=== PATIENT | male | born 1955 | race Caucasian/White ===

== ENCOUNTER 2023-01-18 11:04 | Observation (INO) ==
--- NOTE | 2022-12-14 15:16 | PAT Medication Instructions ---
Medication Instructions Date of Service December 14, 2022 Home Medications aspirin 81 mg capsule 81 mg PO HS atenolol 50 mg-chlorthalidone 25 mg tablet 1 tab PO QAM cyclobenzaprine 10 mg tablet 10 mg PO DAILY diphenhydramine HCl 25 mg capsule (Benadryl) 25 mg PO HS glucosamine-chondroitin 250 mg-200 mg tablet (Osteo Bi-Flex) 1 tab PO BID potassium chloride 10 mEq capsule,extended release 10 meq PO BID rosuvastatin 20 mg tablet 20 mg PO HS sulindac 200 mg tablet 200 mg PO BID Medication Instructions: ASK your surgeon for instructions sulindac 200 mg tablet 200 mg PO BID ASK your prescriber and surgeon aspirin 81 mg capsule 81 mg PO HS STOP taking 2 weeks before surgery glucosamine-chondroitin 250 mg-200 mg tablet (Osteo Bi-Flex) 1 tab PO BID DO NOT take the morning of surgery cyclobenzaprine 10 mg tablet 10 mg PO DAILY potassium chloride 10 mEq capsule,extended release 10 meq PO BID Take morning of surgery With a small sip of water, OTHERWISE NOTHING TO EAT OR DRINK AFTER MIDNIGHT: atenolol 50 mg-chlorthalidone 25 mg tablet 1 tab PO QAM Take evening before surgery rosuvastatin 20 mg tablet 20 mg PO HS diphenhydramine HCl 25 mg capsule (Benadryl) 25 mg PO HS potassium chloride 10 mEq capsule,extended release 10 meq PO BID Other Notes If you have any questions please call us at [phone] or [phone] or [phone] or [phone]
--- NOTE | 2022-12-21 09:51 | Anesthesiology Consultation ---
Date of Service December 21, 2022 Assessment & Plan (1) Encounter for pre-operative examination: Chart Review Chart Review: Acceptable Risk for Surgery and Patient seen in Pre Admission Testing Moderate aortic stenosis- did discuss SAB vs GA- will leave to anesthesiologist discretion (no fluid bolus ordered) - Pt is NOT an OPJ candidate (currently scheduled as 23 hour obs) Per PAT appt on 12/21/22, no recent illness/disease exposures, illness related symptoms, or recent illness/disease positive tests. Will leave to surgeon's discretion if preop Covid testing needed Patient seen by cardio 10/14/22= seen for consultation for aortic stenosis and aortic valve insufficiency. Patient doing well and remains quite active. Recent echo shows LV cavity normal in size and has preserved LVEF thus no absolute indication for intervention on AV at this time. Repeat ECHO within 1 year along with a routine clinical follow up Teaching & Discussion Pre-Anesthesia Teaching/Discussion Notes: Instructed NPO after midnight before surgery,except medications with 15 cc of water. Medication instructions provided according to the PAT guidelines. History Surgery Operation Date: 01/18/23 07:00 Proposed Procedures p Right Total Knee Arthroplasty - Kyler Hale MD Height/Weight Height: 5 ft 6 in Weight: 77.2 kg Allergies Allergy/AdvReac Type Severity Reaction Status Date / Time No Known Allergies Allergy Verified 12/14/22 12:11 Medications Home Medications Medication Instructions Recorded Confirmed Last Taken aspirin 81 mg capsule 81 mg PO HS 12/14/22 12/14/22 Unknown atenolol 50 mg-chlorthalidone 25 1 tab PO QAM 12/14/22 12/14/22 Unknown mg tablet cyclobenzaprine 10 mg tablet 10 mg PO DAILY 12/14/22 12/14/22 Unknown diphenhydramine HCl 25 mg capsule 25 mg PO HS 12/14/22 12/14/22 Unknown (Benadryl) glucosamine-chondroitin 250 mg-200 1 tab PO BID 12/14/22 12/14/22 Unknown mg tablet (Osteo Bi-Flex) potassium chloride 10 mEq 10 meq PO BID 12/14/22 12/14/22 Unknown capsule,extended release rosuvastatin 20 mg tablet 20 mg PO HS 12/14/22 12/14/22 Unknown sulindac 200 mg tablet 200 mg PO BID 12/14/22 12/14/22 Unknown Past Medical History Medical History (Updated 12/21/22 @ 10:01 by Daily Alston PA-C) Aortic stenosis Moderate (VINCE 1.1-1.2 cm; AV max velocity 3.252 m/s; AV mean PG 20.6 mmHg) per 06/24/22 ECHO with moderate to severe AR Follows with [facility] Arthritis Hyperlipidemia Hypertension Exercise / Class Metabolic Activity II 4-5 Yardwork/Stairs/Walk up hill (one flight of stairs - no chest pain or SOB ) Past Family History Family History Other No family history of adverse response to anesthesia Past Surgical History Surgical History H/O metal removed from eye History of colonoscopy History of tonsillectomy History of tooth extraction Past Anesthesia History No Hx of Anesthesia Complications and No Family Hx of Anesthesia Complications History of PONV No Hx of PONV and No Hx of Motion Sickness Social History Smoking Status: Former smoker Do You Dip or Chew Tobacco: No Smoking End Date: 30+ years ago Hx Alcohol Use: Yes Alcohol type: beer alcohol intake frequency: 3 or more drinks per day Alcohol Intake Frequency Comment: 2-6 beers per day substance use type: does not use Review of Systems Patient denies chest pain, shortness of breath, dyspnea on exertion, reflux, c ough, wheezing, palpitations. No hx of seizures, stroke, NH, apnea/snoring. No hx of blood clots or blood transfusions Physical Exam Vital Signs VITALS BP 116/51 P 60 TEMP 97.7 SP02 96% RESP 16 Constitutional no acute distress ENMT Mouth: no TMJ clicking Thyromental Distance: > or= 3.5 Finger Breadths (3.5) Mallampati Class: II Full upper denture Permanent front bottom bridge Neck neck extension not limited Respiratory normal respiratory effort; no respiratory distress Auscultation: lungs clear to auscultation bilaterally; no wheezes Cardiovascular Rate/Rhythm: regular rate and regular rhythm Heart Sounds: + murmur (III/ murmur) Vessels: no carotid bruit Musculoskeletal Spine: no pain with cervical ROM Extremities: extremities normal to inspection Psychiatric Orientation: alert Lab Results Anesthesia Preop Results Results Anesthesia Widget: WBC 6.83 K/ul (4.8-10.8) 12/21/22 Hgb 14.5 g/dl (14.0-18.0) 12/21/22 Hct 41.2 % (42.0-52.0) L 12/21/22 Plt 170 K/uL (130-400) 12/21/22 Na 138 mmol/L (136-145) 12/21/22 K 3.7 mmol/L (3.5-5.1) 12/21/22 Cl 103 mmol/L (98-107) 12/21/22 CO2 29 mmol/L (21-32) 12/21/22 BUN 23 mg/dl (6-23) 12/21/22 Creat 0.90 mg/dl (0.6-1.4) 12/21/22 Glucose Level 79 mg/dl (70-99(Fasting)) 12/21/22 PT 10.5 Seconds (9.0-12.0) 12/21/22 PTT 25.2 Seconds (21.0-31.0) 12/21/22 INR 1.0 (0.9-1.1) 12/21/22 Blood Type A Positive 12/21/22 Antibody Screen NEGATIVE 12/21/22 Testing Electrocardiogram Date: 10/14/22 Findings: + NSR @ (65bpm ) Normal EKG per cardio Chest X-Ray Date: 12/21/22 Findings: + NAD Echocardiogram Date: 06/24/22 EF: 55-59% LV Function: normal RWMA: + none Other Findings: + LVH (Mild/concentric) and + diastolic dysfunction (Grade 1) Moderate aortic valve stenosis. VINCE 1.1-1.2 cm; AV max velocity 3.252 m/s; AV mean PG 20.6 mmHg Moderate to severe aortic regurgitation Mild MR
--- NOTE | 2023-01-15 17:26 | History & Physical Report ---
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 He is failed conservative measures. He like to have his right knee replaced. Plan: Taken the operative right total knee replacement the risks Mente this procedure plan the patient include but not limited to DVT PE infection neurological injury vascular bleeding palm pain limb range of motion test is fairly with symptoms incomplete relief of symptoms and need for revision surgery. The patient understands and desires to proceed. Informed consent was obtained. Patient was seen by his primary care doctor as well as his collar trimmer and cleared for surgery. He is got some mild to moderate aortic stenosis and aortic insufficiency which parent is stable and does not cause symptoms. History of Present Illness Chief Complaint: . Right knee pain discomfort and instability. Primary Care Provider: Lilia Rocha MD . 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 He presents for surgical treatment of his right knee. He has a 15-year history of increasing right knee pain discomfort. Is gradually gotten worse over time. Is global pain. The more he is up on it more it hurts. It really limits his activities. Has been through extensive treatment including physical therapies and the PRP injections which have not helped. He now presents for surgical treatment. Allergies Allergy/AdvReac Type Severity Reaction Status Date / Time No Known Allergies Allergy Verified 12/14/22 12:11 Home Medications Medication Instructions Recorded Confirmed Type aspirin 81 mg capsule 81 mg PO HS 12/14/22 12/14/22 History atenolol 50 mg-chlorthalidone 25 1 tab PO QAM 12/14/22 12/14/22 History mg tablet cyclobenzaprine 10 mg tablet 10 mg PO DAILY 12/14/22 12/14/22 History diphenhydramine HCl 25 mg capsule 25 mg PO HS 12/14/22 12/14/22 History (Benadryl) glucosamine-chondroitin 250 mg-200 1 tab PO BID 12/14/22 12/14/22 History mg tablet (Osteo Bi-Flex) potassium chloride 10 mEq 10 meq PO BID 12/14/22 12/14/22 History capsule,extended release rosuvastatin 20 mg tablet 20 mg PO HS 12/14/22 12/14/22 History sulindac 200 mg tablet 200 mg PO BID 12/14/22 12/14/22 History Past Med/Surg History Medical History (Updated 12/21/22 @ 10:01 by Daily Alston PA-C) Aortic stenosis Moderate (VINCE 1.1-1.2 cm; AV max velocity 3.252 m/s; AV mean PG 20.6 mmHg) per 06/24/22 ECHO with moderate to severe AR Follows with [facility] Arthritis Hyperlipidemia Hypertension Surgical History H/O metal removed from eye History of colonoscopy History of tonsillectomy History of tooth extraction Family History Other No family history of adverse response to anesthesia Social History Smoking Status: Former smoker Tobacco Type: Cigarettes Smoking End Date: 30+ years ago; Second Hand Exposure: Yes (as a child/father smoked); Do You Dip or Chew Tobacco: No; Hx Alcohol Use: Yes Alcohol type: beer Preferred Language: [place]an Ccu Nurse Required: No Beliefs That Will Affect Care: None Current Living Situation: Spouse Feels Safe at Home: Yes Safety Concerns: Feels Safe At This Time Assistive Devices: None and Denture - Upper Review of Systems All systems reviewed & are unremarkable except as noted in HPI & below. Physical Exam . Physical examination reveals a healthy pleasant 67-year-old male. Examination of the right knee reveals patient ambulates independently. He had varus alignment to his knee. He is got a varus thrust with weightbearing. Small knee effusion. Tender medially. He is got bony hypertrophy medially. Range of motion is 0-1 25. No instability. No pain with hip motion. Constitutional WD/WN, vitals as above Neck trachea midline, no thyromegaly Respiratory normal respiratory effort, lungs clear to auscultation Cardiovascular RRR, no murmur, no edema Gastrointestinal (Abdomen) normal bowel sounds, soft, nontender, no hepatosplenomegaly Results & Data Results & Data Laboratory Results . Diagnostic Findings . X-rays of the right knee reveal advanced medial compartment arthritis Feese complete loss of medial joint space. He is got osteophytes primarily medially. PG Care Time/CCT Total # of Minutes Spent Total Time Spent with Patient: Total time spent is greater than 50% in coordination of care (as documented) at patient's floor/unit and/or counseling patient: Coding Level of Care Code None Diagnoses Right knee DJD M17.11
[~2023-01-18 11:04] MED LIST: ACETAMINOPHEN 500 MG TAB PO SCH; BUPIVACAINE LIPOSOME/PF 266 MG, BUPIVACAINE/EPINEPHRINE 50 ML, SODIUM CHLORIDE 0.9% PF ... INFIL SCH; CeleBREX 200 MG CAP PO SCH; FAMOTIDINE 20 MG TAB PO SCH; LR 15ML/HR IV SCH; LR 60ML/HR IV SCH; METOCLOPRAMIDE HCL 10 MG TABLET PO SCH; ROPIVACAINE 0.5% 5 MG/ML 30 ML VIAL ONE; Scopolamine 1 MG TDSY TD SCH; TRANEXAMIC ACID 1,000 MG **IV Intra-op IV SCH; ceFAZolin 2000MG 2,000 MG/15 ML SYR IV SCH; dexAMETHasone**PF** 10 MG/ML VIAL IV SCH
[2023-01-18] MEDS ORDERED: HYDROmorphone INJ 1 MG/ML SYRINGE IV PRN (12:02)
[2023-01-18] MEDS ORDERED: KETOROLAC 30 MG/ML VIAL IV PRN (12:02)
[2023-01-18] MEDS ORDERED: ONDANSETRON INJ 2 MG/ML 2 ML VIAL IV PRN ×2 (12:02→16:32)
[2023-01-18] MEDS ORDERED: ATROPINE SULFATE 0.1 MG/ML 10ML SYR IV PRN (12:02)
[2023-01-18] MEDS ORDERED: PROMETHAZINE HCL 6.25 MG in SODIUM CHLORIDE 0.9% 50 ML IV PRN (12:02)
[2023-01-18] MEDS ORDERED: MIDAZOLAM HCL 1 MG/ML 2ML VIAL ONE (12:07)
[2023-01-18] MEDS ORDERED: PROPOFOL IV EMULSION 10 MG/ML 20 ML VIAL IV ONE (12:07)
[2023-01-18] MEDS ORDERED: GLYCOPYRROLATE 0.2 MG/ML VIAL ONE (12:07)
[2023-01-18] MEDS ORDERED: DEXAMETHASONE SOD INJ 4 MG/ML VIAL ONE (12:07)
[2023-01-18] MEDS ORDERED: fentaNYL citrate PF 100 MCG/2 ML VIAL ONE (12:07)
[2023-01-18] MEDS ORDERED: ROCURONIUM BROMIDE 10 MG/ML 5 ML VIAL IV ONE (12:07)
[2023-01-18] MEDS ORDERED: LIDOCAINE 2% 2 ML VIAL/AMP(20MG/ML) INFIL ONE (12:07)
[2023-01-18] MEDS ORDERED: ONDANSETRON INJ 2 MG/ML 2 ML VIAL ONE (12:07)
[2023-01-18] MEDS ORDERED: NEOSTIGMINE METHYLSULFATE 1 MG/ML 10ML VIAL ONE (12:07)
[2023-01-18] MEDS ORDERED: LARYING-O-JET KIT (LTA) ONE (12:15)
--- NOTE | 2023-01-18 12:42 | History & Physical Bridge Note ---
Date of Service January 18, 2023 History & Physical Bridge Note I have examined the patient, reviewed the History & Physical and in the interval since the performance of the History & Physical I have noted the following changes of clinical significance: no changes noted
[2023-01-18] MEDS ORDERED: SODIUM CHLORIDE 0.9% PF 50 ML VIAL ONE (12:47)
[2023-01-18] MEDS ORDERED: BUPIVACAINE LIPOSOME 1.3% 266 MG/20 ML VIAL ONE (12:47)
[2023-01-18] MEDS ORDERED: BUPIVACAINE/EPINEPHRINE 0.25% 1:200,000 30 ML VIAL ONE (12:47)
[2023-01-18] MEDS ORDERED: PHENYLEPHRINE 100MCG/ML 5ML SYR ONE (13:22)
[2023-01-18] MEDS ORDERED: PHENYLEPHRINE HCL 10 MG/ML VIAL ONE (13:22)
[2023-01-18] MEDS ORDERED: ePHEDrine sulfate 50 MG/5 ML SYR ONE (13:22)
[2023-01-18] MEDS ORDERED: HYDROmorphone INJ 2 MG/ML SYR/VIAL ONE (13:34)
[2023-01-18] MEDS ORDERED: SUGAMMADEX SODIUM 200 MG/2 ML VIAL IV ONE (13:36)
--- NOTE | 2023-01-18 15:00 | Operative Report ---
PG Post Operative Report Pre & Post Diagnosis Operation Date: 01/18/23 12:30 Pre-Op Diagnosis: Right Knee Advanced Degenerative Joint Disease Post-Op Diagnosis: Right Knee Advanced Degenerative Joint Disease I identified the patient and participated in the time-out.: Yes Procedure Operation Date: 01/18/23 12:30 Actual Procedures p Right Total Knee Arthroplasty - Kyler Hale MD Surgeon Kyler Hale MD Chief Controller Station Donavan Hirsch PA-C Estimated Blood Loss 50 Findings Consistent with Post-Op Diagnosis Operative findings reveal advanced right knee DJD. Had extensive grade 4 [id number] disease in the medial compartment and more spotty grade 4 changes elsewhere. He had a fixed varus deformity to his knee. Chronic ACL deficiency. Severe varus deformity. 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 Is been through extensive conservative treatment of the years which has become less successful. He is got chronic pain. Is got deformity to his leg. He limps more as the day goes on. He is got nighttime pain. He is now elected to proceed with total knee replacement. Description of Procedure Operative implants consist of: 1 Biomet Vanguard size 70 right posterior stabilized femoral component. 2. Biomet size 75 tibial tray. 3. 12 mm posterior stabilized polyethylene insert. 4. 34 x 8 and half all poly patella. The patient was taken to the operating, identified, and placed on the operating table supine position. All contact areas were appropriately padded. IV antibiotics tried by anesthesia team. An abductor canal block was performed in the holding area. A general anesthetic was implemented due to his history of aortic stenosis. A right thigh tent was then placed. The right lower extremities then prepped and draped in usual sterile fashion. The right leg was elevated and exsanguinated with use of an Esmarch and tourniquet placed at 300 mmHg. An anterior approach of the right knee was then performed to longitudinal incision centered over the patella. Sharp dissection carried through subcutaneous tissue down the extensor mechanism. A medial parapatellar arthrotomy incision was made. Some subperiosteal dissection was carried out medially. The fat pad was dissected from Neath patella tendon. The lateral patellofemoral ligament was released. Patella subluxated laterally and the knee was flexed. The osteophytes taken on distal femur. The ACL and PCL were then released from distal femur and the tibia subluxated anteriorly. The external tibial alignment jig was then placed in the interface the tibia and adjusted about 16 mm medially. Proximal tibial cut was made as essentially flush with the most deficient aspect the posterior medial tibial plateau. Some osteophytes were taken posterior medially. The tibia was sized to a size 75. Attention drawn the femur. The distal femur send with a sharp drill. Intramedullary canal was suction. Right 6 degree valgus cutting guide was placed. This femoral cutting block was pinned in place. Distal femoral cut was made according to the block. I did not take any additional distal femur. The femur was then sized to a size 70. The AP cutting block was pinned parallel to the epicondylar axis which was 3 degrees of external Tatian. The anterior cut, anterior chamfer, posterior cut, posterior chamfer cuts were made for the box cutting guide was placed in just slight lateral box cut was made. The knee was flexed. The remnants of the medial and lateral menisci were excised. The osteophytes taken off the posterior aspect the femur. A trial femoral component was placed. The tibial tray was pinned in maximum external rotation and the drill and stem punch used to create defect in proximal tibia for the tibial tray. The knee was then trialed and the 12 mm insert fit most appropriately. Attention drawn the patella. The patella was cleaned of all soft tissues. Patella thickness measured 21 mm i n thickness was cut down to 13. It was sized to a size 34 patella. The lug holes were drilled for the 34 patella. The lateral osteophytes removed. Patella button was placed. Knee was taken through range of motion patella tracked nicely with no thumbs test. Attention drawn to placing permanent components. All trial components were removed. Bone plug was placed in the distal femur limit blood loss. Double batch Palacos G cement was mixed. BiomZhaogangguard size 70 right posterior stabilized femoral component, size 75 tibial tray, a 12 mm posterior stabilized polyethylene insert, and a 34 x 8 and half all Paller patella then cemented in place. The knee was brought out into full extension till cement hardened. Final cement check was then performed. The pericapsular tissues were injected with total 100 cc of combination of 20 cc of Exparel, 30 cc normal saline, 50 cc of quarter percent Marcaine with epinephrine. Patient did receive 1 g tranexamic acid. The tourniquet was then let down for final tourniquet time of 61 minutes. Hemostasis assured with electrocautery. The wound was once again irrigated and the extensor mechanism then closed with combination 1 PDS suture #1 Vicryl suture in a [id number] fashion. Extensor Maxon checked found to be intact the subcutaneous tissue then closed with 2 Dexon suture in a buried interrupted fashion skin was closed skin staple s. Leg was then cleaned and dried and sterile dressing was Xeroform, 4 fours, sterile cast padding, Clyde bandage were applied. Patient then transferred to the recovery room in stable condition. Patient tolerated procedure well and there were no complications. Donavan Hirsch, my physician permit review assistant, was present for the entire procedure. His assistance was essential and required for appropriate patient positioning, prepping and draping, surgical exposure, performing the technical details of the operation, placement the implants, closure of the wound, and placement of the sterile bandage. I attest to the content of the Intraoperative Record and any orders documented therein. Any exceptions are noted below.
--- NOTE | 2023-01-18 15:40 | Anesthesiology Progress Note ---
Date of Service January 18, 2023 Anesthesia Post Procedure Vital Signs Vital Signs: Temp Pulse Pulse Resp BP BP Pulse Ox 01/18/23 15:25 79 17 121/56 L 97 01/18/23 15:15 79 14 111/52 L 100 01/18/23 15:08 36.1 C L 78 15 120/51 L 100 01/18/23 11:34 36.4 C L 61 20 141/70 H 99 O2 Del Method O2 Flow Rate 01/18/23 15:25 Room Air 01/18/23 15:15 Oxymask 6 01/18/23 15:08 Oxymask 6 01/18/23 11:34 Room Air Transfer of Care Handoff Completed per policy Notes Mental Status: alert / awake / arousable Patient Amnestic to Procedure: Yes Nausea / Vomiting: adequately controlled Pain: adequately controlled Airway Patency, RR, SpO2: stable & adequate BP & HR: stable & adequate Hydration State: stable & adequate Anesthetic Complications: no major complications apparent and Pt Satisfied with anesthetic care
--- NOTE | 2023-01-18 15:48 | XRay Report ---
XR knee RT 1 or 2V routine HISTORY: 67 years-old Male Surgical Post Op right knee arthroplasty COMPARISON: 08/10/2022 TECHNIQUE: 2 views of the right knee FINDINGS: Total joint arthroplasty with patellar resurfacing. Anterior midline skin timothy with expected posto perative soft tissue swelling and deep tissue air. Arterial calcifications. IMPRESSION: Total joint arthroplasty with expected postoperative changes. ACT 112: Negative or not required by law. The above report was generated using voice recognition software. It may contain grammatical, syntax o r spelling errors. Electronically signed by: Torsten Ramirez M.D. 01/18/2023 3:47 PM
[2023-01-18] MEDS ORDERED: HYDROmorphone INJ 0.5 MG/0.5 ML SYR IV PRN (16:32)
[2023-01-18] MEDS ORDERED: ALUMINUM/MAGNESIUM SUSP 30 ML UDC PO PRN (16:32)
[2023-01-18] MEDS ORDERED: NALOXONE HCL 0.4 MG/1 ML VIAL/CARP IV PRN (16:32)
[2023-01-18] MEDS ORDERED: METOCLOPRAMIDE HCL INJ 5 MG/ML 2 ML VIAL IV PRN (16:32)
[2023-01-18] MEDS ORDERED: oxyCODONE HCL IR 5 MG TAB (IMMEDIATE RELEASE) PO PRN (16:32)
[2023-01-18] MEDS ORDERED: MAGNESIUM HYDROXIDE SUSP 30 ML UDC PO PRN (16:32)
[2023-01-18] MEDS ORDERED: bisacodyL 10 MG SUPP PR PRN (16:32)
[2023-01-18] MEDS: Scopolamine CHECK PATCH PLACEMENT SCH (16:40)
[2023-01-18] MEDS: SODIUM CHLORIDE 0.9% 1,000 ML IV SCH (16:44)
[2023-01-18] MEDS: ASCORBIC ACID 500 MG TAB PO SCH (17:55)
[2023-01-18] MEDS: DOCUSATE SODIUM 100 MG CAP PO SCH (20:04)
[2023-01-18] MEDS: ASPIRIN 81 MG ECTAB PO SCH (20:04)
[2023-01-18] MEDS: POTASSIUM CHLORIDE 10 MEQ TABCR PO SCH (20:04)
[2023-01-18] MEDS: ceFAZolin 1000MG 1,000 MG/7.5 ML SYR IV SCH (20:19)
[2023-01-18] MEDS ORDERED: NON-FORMULARY MEDICATION (Glucosamine-Chondroitin [Osteo Bi-Flex] 250-200 mg Tablet) PO SCH (21:00)
[2023-01-18] MEDS ORDERED: diphenhydrAMINE Capsule 25 MG CAP PO SCH (21:00)
[2023-01-18] MEDS ORDERED: TRANEXAMIC ACID / 0.7% NACL 1,000 MG/100 ML BAG IV SCH (21:00)
[2023-01-18] MEDS ORDERED: ROSUVASTATIN CALCIUM 20 MG TAB PO SCH (21:00)
[2023-01-18] MEDS ORDERED: SENNA 8.6 MG TAB PO SCH ×2 (21:00)
[2023-01-18] MEDS: ACETAMINOPHEN 500 MG TAB PO SCH (22:00)
[2023-01-19] MEDS: KETOROLAC TROMETHAMINE 15 MG/ML VIAL IV SCH ×2 (00:04→06:25)
[2023-01-19] MEDS: Scopolamine CHECK PATCH PLACEMENT SCH ×2 (00:05→08:01)
[2023-01-19] MEDS: SODIUM CHLORIDE 0.9% 1,000 ML IV SCH (03:16)
[2023-01-19] MEDS: ACETAMINOPHEN 500 MG TAB PO SCH (06:25)
[2023-01-19] MEDS: ceFAZolin 1000MG 1,000 MG/7.5 ML SYR IV SCH (06:26)
[2023-01-19 06:36] LABS: Hematocrit (blood only) 34.1 % (42.0-52.0); Hemoglobin 12.5 g/dl (14.0-18.0); Mean Corpuscular Hemoglobin 33.1 pg (25.0-34.0); Mean Corpuscular Hgb Conc 36.7 g/dL (32.0-36.0); Mean Corpuscular Volume 90.2 fL (80.0-100.0); Platelet Count 149 K/uL (130-400); RDW Coefficient of Variation 12.6 % (11.5-14.5); RDW Standard Deviation 41.4 fL (36.4-46.3); Red Blood Count 3.78 M/uL (4.70-6.10); White Blood Count 20.77 K/ul (4.8-10.8)
[2023-01-19 06:57] LABS: BUN Creatinine Ratio 29.1 (10-20); Calcium 8.4 mg/dl (8.6-10.3); Creatinine Clr Calc Pharmacy 63.6 ml/min; Est GFR (African American) 80.1 ml/min; Est GFR (Non-African American) 69.1 ml/min; Potassium 3.6 mmol/L (3.5-5.1)
[2023-01-19] MEDS: ASCORBIC ACID 500 MG TAB PO SCH (07:58)
[2023-01-19] MEDS: ASPIRIN 81 MG ECTAB PO SCH (07:59)
[2023-01-19] MEDS: POTASSIUM CHLORIDE 10 MEQ TABCR PO SCH (07:59)
[2023-01-19] MEDS: DOCUSATE SODIUM 100 MG CAP PO SCH (07:59)
[2023-01-19] MEDS ORDERED: dexAMETHasone 10 MG in SYRINGE 0 ML IV SCH (08:00)
[2023-01-19] MEDS ORDERED: TAMSULOSIN HCL 0.4 MG CAP PO SCH (09:00)
[2023-01-19] MEDS ORDERED: MULTIVITAMIN TAB PO SCH (09:00)
[2023-01-19] MEDS ORDERED: CYCLOBENZAPRINE HCL 10 MG TAB PO SCH (09:00)
[2023-01-19] MEDS ORDERED: CHLORTHALIDONE 25 MG TAB PO SCH (09:00)
[2023-01-19] MEDS ORDERED: ATENOLOL 50 MG TABLET PO SCH (09:00)
--- NOTE | 2023-01-19 10:56 | Surgery Progress Note ---
Date of Service January 19, 2023 Assessment & Plan (1) Status post right knee replacement: Plan: 67-year-old gentleman postop day 1 from right knee replacement doing quite well. Pain is controlled. He is neurologically intact. Is open to go home. Plan: 1. DVT prophylaxis including thigh-high teds, SCDs, aspirin twice a day. 2. PT OT. Weight-bear as tolerated right total knee protocol. 3. Pain control doing okay with current pain regimen. 4. Disposition. Plan is to discharge to home with some home health today. Admission and Anticipated Discharge Date Admission Date: January 18, 2023 Subjective 67-year-old gentleman postop day 1 from a right knee replacement. He is doing pretty well. Pains controlled. Had a pretty good night. No chest pain or shortness of breath. Not feeling dizzy or lightheaded. He is hoping to go home today. Physical Exam Physical Exam: Physical examination of the right leg reveals the dressing be clean dry and intact. He can dorsiflex and plantarflex his foot appropriately. He can do a good straight leg raise. He is neurologically intact. Respiratory: normal respiratory effort, lungs clear to auscultation Cardiovascular: RRR, no murmur, no edema Gastrointestinal (Abdomen): normal bowel sounds, soft, nontender, no hepatosplenomegaly Results & Data Vital Signs (Past 12 Hours) Vital Signs Temp Pulse Resp BP Pulse Ox O2 Del Method 01/19/23 07:23 36.6 C 78 16 101/55 L 96 Room Air 01/19/23 02:53 36.3 C L 81 18 110/55 L 96 Room Air 01/18/23 23:00 36.7 C 94 H 18 105/52 L 98 Room Air Laboratory Results Hemoglobin is 12.5. Hematocrit is 34.1. Electrolytes are stable. PG Care Time/CCT Total # of Minutes Spent Total Time Spent with Patient: Total time spent is greater than 50% in coordination of care (as documented) at patient's floor/unit and/or counseling patient: Coding Level of Care Code 76817 Post Operative Follow-Up Diagnoses Status post right knee replacement Z96.651
== END 2023-01-19 12:05 | disposition home health service (06) ==
LOC: ASU 11:04 → 3E 11:04